=== PATIENT | male | born 1955 | race Caucasian/White ===

== ENCOUNTER 2019-01-13 10:18 | Outpatient (REF) | payer BC, SELFPAY ==
[2019-01-13 22:05] LABS: BUN 17 mg/dL (7-18); CREATININE 1.16 mg/dL (0.70-1.30); Calcium 9.4 mg/dL (8.5-10.1); Calculated LDL 149 mg/dL; Chloride 105 mmol/L (98-107); Cholesterol 216 mg/dL (<200); Glucose 73 mg/dL (74-106); HDL Cholesterol 43 mg/dL (40-60); Potassium 4.8 mmol/L (3.5-5.1); Sodium 143 mmol/L (136-145); Triglyceride 124 mg/dL (<150)
[2019-01-15 13:01] LABS: PSA, Screening 0.9 ng/mL (0.0-4.5)
== END 2019-01-13 10:38 ==
LOC: NCHCN 10:18
PROVIDERS: PCP Internal Medicine; Visit Provider Internal Medicine
DX: R03.0 Elevated blood-pressure reading, without diagnosis of hypertension (principal); E66.3 Overweight; Z12.5 Encounter for screening for malignant neoplasm of prostate
CPT/HCPCS: 80048; 80061; 84153

== ENCOUNTER 2020-07-05 08:59 | Outpatient (REF) | payer MEDICARE, BC, SELFPAY ==
[2020-07-05 14:09] LABS: ALT 36 U/L (16-63); AST 24 U/L (15-37); Albumin 4.1 g/dL (3.4-5.0); Alkaline Phosphatase 61 U/L (46-116); Anion Gap 12.7 mmol/L (3-11); BUN 26 mg/dL (7-18); Bilirubin, Total 0.7 mg/dL (0.2-1.0); CO2 26.3 mmol/L (21.0-32.0); CREATININE 1.2 mg/dL (0.70-1.30); Calculated LDL 150 mg/dL (<100); Chloride 103 mmol/L (98-107); Cholesterol 221 mg/dL (<200); Glucose 104 mg/dL (74-106); HDL Cholesterol 38 mg/dL (40-60); Potassium 3.7 mmol/L (3.5-5.1); Sodium 142 mmol/L (136-145); Total Protein 7.1 g/dL (6.4-8.2); Triglyceride 165 mg/dL (<150)
== END 2020-07-05 09:00 | disposition home or self-care (01) ==
LOC: NCHCN 08:59
PROVIDERS: PCP Internal Medicine; Visit Provider Internal Medicine
DX: E78.5 Hyperlipidemia, unspecified (principal); R03.0 Elevated blood-pressure reading, without diagnosis of hypertension
CPT/HCPCS: 80053; 80061

== ENCOUNTER 2020-08-20 16:32 | Outpatient (REF) | payer MEDICARE, BC, SELFPAY ==
[2020-08-20 19:42] LABS: Calculated LDL 103 mg/dL (<100); Cholesterol 185 mg/dL (<200); HDL Cholesterol 36 mg/dL (40-60); Triglyceride 233 mg/dL (<150)
== END 2020-08-20 16:33 | disposition home or self-care (01) ==
LOC: NCHCN 16:32
PROVIDERS: PCP Internal Medicine; Visit Provider Internal Medicine
DX: Z00.00 Encounter for general adult medical examination without abnormal findings (principal); E78.5 Hyperlipidemia, unspecified
CPT/HCPCS: 80061

== ENCOUNTER 2021-08-22 15:26 | Outpatient (REF) | payer MEDICARE, BC, SELFPAY ==
[2021-08-22 15:23] LABS: Anion Gap 11.3 mmol/L (3-11); BUN 26 mg/dL (7-18); CO2 26.7 mmol/L (21.0-32.0); CREATININE 1.2 mg/dL (0.70-1.30); Calcium 9.1 mg/dL (8.5-10.1); Calculated LDL 96 mg/dL (<100); Chloride 106 mmol/L (98-107); Cholesterol 156 mg/dL (<200); Glucose 118 mg/dL (74-106); HDL Cholesterol 40 mg/dL (40-60); Potassium 4.7 mmol/L (3.5-5.1); Sodium 144 mmol/L (136-145); Triglyceride 101 mg/dL (<150)
== END 2021-08-22 15:27 | disposition home or self-care (01) ==
LOC: NCHCN 15:26
PROVIDERS: PCP Internal Medicine; Visit Provider Internal Medicine
DX: I10 Essential (primary) hypertension (principal)
CPT/HCPCS: 80048; 80061

== ENCOUNTER 2021-09-07 17:05 | Outpatient (REF) | payer MEDICARE, BC, SELFPAY ==
[2021-09-08 21:22] LABS: PSA, Screening 1.2 ng/mL (<=4.5)
== END 2021-09-07 17:06 | disposition home or self-care (01) ==
LOC: NCHCN 17:05
PROVIDERS: PCP Internal Medicine; Visit Provider Nurse Practitioner Family
DX: Z12.5 Encounter for screening for malignant neoplasm of prostate (principal)
CPT/HCPCS: 84153

== ENCOUNTER 2021-10-26 20:31 | Outpatient (REF) | payer MEDICARE, BC, SELFPAY ==
[2021-10-26 21:23] LABS: ALT 32 U/L (16-63); AST 25 U/L (15-37); Albumin 4.4 g/dL (3.4-5.0); Alkaline Phosphatase 71 U/L (46-116); Bilirubin, Direct 0.1 mg/dL (0.0-0.2); Bilirubin, Total 0.7 mg/dL (0.2-1.0); TSH 1.94 uIU/mL (0.36-3.74); Total Protein 7.9 g/dL (6.4-8.2)
[2021-10-31 13:00] LABS: IgA 116 mg/dL (85-499); Interpretation (See Note); Tissue Transglutaminase IgA <1.2 U/mL (<4.0)
== END 2021-10-26 20:32 | disposition home or self-care (01) ==
LOC: NCHCN 20:31
PROVIDERS: PCP Internal Medicine; Visit Provider Internal Medicine
DX: R19.7 Diarrhea, unspecified (principal)
CPT/HCPCS: 80076; 82784; 83516; 84443

== ENCOUNTER 2022-03-10 11:18 | Outpatient (REF) | payer MEDICARE, BC, SELFPAY ==
[2022-03-10 15:11] LABS: HCT 49.6 % (40.0-50.0); HGB 16.6 g/dL (13.5-17.5); MCH 30.2 pg (27.0-33.0); MCHC 33.5 % (32.0-36.0); MCV 90 fL (80-95); Platelet Count 219 10^3/uL (130-400); RBC 5.49 10^6/uL (4.36-5.78); RDW 12.4 % (11.8-14.1); RDW-SD 40.7 fL; WBC 7.32 10^3/uL (4.4-10.8)
[2022-03-10 15:14] LABS: ESR 9 mm/hr (0-20)
[2022-03-10 15:18] LABS: C-Reactive Protein 0.07 mg/dL (0.0-0.3)
== END 2022-03-10 11:19 | disposition home or self-care (01) ==
LOC: NCHCN 11:18
PROVIDERS: PCP Internal Medicine; Visit Provider Internal Medicine
DX: H53.8 Other visual disturbances (principal); G44.89 Other headache syndrome
CPT/HCPCS: 85027; 85652; 86140

== ENCOUNTER 2022-07-03 13:51 | Outpatient (REF) | payer MEDICARE, BC, SELFPAY ==
[2022-07-03 16:46] LABS: Calculated LDL 82 mg/dL (<100); Cholesterol 154 mg/dL (<200); HDL Cholesterol 41 mg/dL (40-60); Triglyceride 156 mg/dL (<150)
== END 2022-07-03 13:52 | disposition home or self-care (01) ==
LOC: NCHCN 13:51
PROVIDERS: PCP Internal Medicine; Visit Provider Internal Medicine
DX: E78.5 Hyperlipidemia, unspecified (principal)
CPT/HCPCS: 80061

== ENCOUNTER 2023-03-15 10:21 | Outpatient (REF) | payer MEDICARE, BC, SELFPAY ==
[2023-03-15 15:19] LABS: Anion Gap 8.2 mmol/L (3-11); BUN 25 mg/dL (7-18); CO2 26.8 mmol/L (21.0-32.0); CREATININE 1.3 mg/dL (0.70-1.30); Calcium 9.2 mg/dL (8.5-10.1); Calculated LDL 89 mg/dL (<100); Chloride 106 mmol/L (98-107); Cholesterol 158 mg/dL (<200); Estimated GFR 59.84 (mL/min/1.73m2); Glucose 109 mg/dL (74-106); HDL Cholesterol 40 mg/dL (40-60); Potassium 4.3 mmol/L (3.5-5.1); Sodium 141 mmol/L (136-145); Triglyceride 148 mg/dL (<150)
[2023-03-15 15:24] LABS: Hemoglobin A1C 5.7 % (<5.7)
== END 2023-03-15 10:22 | disposition home or self-care (01) ==
LOC: NCHCN 10:21
PROVIDERS: PCP Internal Medicine; Visit Provider Internal Medicine
DX: R73.01 Impaired fasting glucose (principal); E78.5 Hyperlipidemia, unspecified
CPT/HCPCS: 80048; 80061; 83036

== ENCOUNTER → 2023-04-09 14:16 | Outpatient (BNVA) | payer MEDICARE, BC, SELFPAY | PROVIDERS: PCP Internal Medicine; Referring Provider Registered Nurse Maternal Newborn; Visit Provider Surgery | DX: K21.9 Gastro-esophageal reflux disease without esophagitis (principal); K22.70 Barrett's esophagus without dysplasia; K57.90 Diverticulosis of intestine, part unspecified, without perforation or abscess without bleeding; E66.3 Overweight | CPT/HCPCS: 99203 ==

== ENCOUNTER 2023-06-07 15:19 | Outpatient (REF) | payer MEDICARE, BC, SELFPAY ==
[2023-06-07 14:56] LABS: Bacteria Negative HPF (Negative); C & S Indicated? No; Casts Negative LPF (Negative); Epithelial Cells Rare HPF (Negative); Mucus Negative (Negative); WBC 0-2 HPF (0-5)
[2023-06-07 21:22] LABS: COMMENT (LAB VIEW ONLY) 155.07 mg/dL; Prot/Crea Ur Ratio 0.11
== END 2023-06-07 15:20 | disposition home or self-care (01) ==
LOC: NCHCN 15:19
PROVIDERS: PCP Internal Medicine; Visit Provider Nurse Practitioner Family
DX: R31.29 Other microscopic hematuria (principal)
CPT/HCPCS: 81015; 82565; 84156

== ENCOUNTER 2023-07-20 06:02 | Day surgery (SDC) | payer MEDICARE, BC, SELFPAY ==
--- NOTE | 2023-07-19 22:18 | HPE_ITS ---
Date of service: 07/20/23 Time of Service: 07:26 Assessment and Plan Assessment and plan (1) Diplopia: Status: Acute (2) Cough: Status: Acute Qualifiers: Cough type: chronic Qualified Code(s): R05.3 - Chronic cough (3) Hypertension: (4) Essential hypertension: (5) Elevated cholesterol: (6) Hyperlipidemia: (7) Overweight: (8) GERD (gastroesophageal reflux disease): Qualifiers: Esophagitis presence: esophagitis presence not specified Qualified Code(s): K21.9 - Gastro-esophageal reflux disease without esophagitis (9) Barretts esophagus: Assessment and plan: Informed consent is obtained for the procedural (explained in simple layman's terms that the pt. and/or family could understand) explaining risks vs benefits and alternatives to the procedure and consequences if we do not do the procedure and need/rational for the procedure. Risks include but are not limited to: bleeding, infection, perforation of esophagus, stomach, colon, small intestines, bronchus or trachea, or PTX. This would necessitate emergency surgery to repair the damage w/ possible ostomy; and other associated complications w/ the required surgery. Also complications of anesthesia including aspiration, AK/CVA/. (10) Diverticulosis: (11) History of colon polyps: (12) Nocturia: (13) Idiopathic osteoarthritis: (14) Obstructive sleep apnea: History of Present Illness Narrative: Patient is here today for EGD [facility].??? They not having any chest pain or shortness of breath, currently.? They are not experiencing any fever or chills.? They deny any productive cough or upper respiratory tract infection signs or symptoms.? They are not having abdominal pain, or nausea and vomiting.? They have not had any changes in medications, past medical history or past surgical history since previously being seen in the office. They have not had any accidents or have been in the ER since the clinic pre-operative evaluation. ??I reviewed the procedure with the patient today, including risks and benefits of the procedure, and what they could expect at home for recovery.? All questions are answered to the patient?s satisfaction today, and they are stable to proceed with the proposed procedure. Protonix 20mg po daily. -he gets breakthrough s/s aabout once a month. Pt states he has had multiple colonoscopy at [facility], this nurse explains that ENT had attempted to get results and they state no results. Then pt states he had one in September at [facility]. Pt reports history of having to move my bowels a lot. Pt reports he has cut his stomach meds in half and Im feeling much better. Pt states he is due for a EGD. Pt saw ENT- b/c he was having excessive phlegm. He changed BP meds and feels the phlegm has gotten better. He was on protonix. He has been for Aprrox 15 yrs. He has decreased from 40 to 20mg Protonix and still feels good. This was decreased PPI in summer. He feels like his throat is more sensitive. -check w/ insurance. -colo in [place] summer. The patient has had an EGD previously. ? There is no family history of any esophageal/gastric cancer.? Patient has not had any weight loss.? Their appetite is good.? The patient has been eating: Hx of Oliveira's. 2021 Repat colo at [place] summer. Was having severe diarrhea 5-6x a day. Cut back on PPI and and diarrhea stopped. occ has noticed hoarse voice if he talks lots. Stomach medications: protonix 20mg. Swallowing: no Reflux/Wet Burps: Nausea/vomiting:no Epigastric pain: no Chest pain/burning: no Melena/blood in stools/anemia: No Constipation or diarrhea: No Dental issues: No Nocturnal problems: only if he doesn't take his meds. If he eats spicy foods, than he will need to take a second protonx. Prior head/neck/esophageal surgery or radiation. Coffee: no Soda/Tea: herbal tea ASA/NSAID?s: no Tobacco: smoker THC: ETOH: no They deny any problems with anesthesia in the past. Anesthesia: general (without airway) Previous surgical intolerances: No Previous surgical complications: No Pulmonary risk factors: Planned procedure: Yes Sleep apnea risks: No COPD/Asthma/Smoker: LEA. 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 Diverticulosis Family history of prostate cancer History of colon polyps Nocturia Diarrhea Transient alteration of awareness Per pt. states he didn't take his blood pressure medication, and was out hunting and didn't know where he was or who he was, but states it wasn't a stroke they determined it was Global transient amnesia. Had CAT scans all normal Traumatic arthropathy Idiopathic osteoarthritis Barretts esophagus GERD (gastroesophageal reflux disease) Essential hypertension Abducens nerve palsy Headache disorder Obstructive sleep apnea Overweight Hyperlipidemia Hypertension Heart burn Elevated cholesterol Surgical History History of tonsillectomy History of knee replacement History of total ankle replacement Family History Mother Hypertension Breast cancer Father Hyperlipidemia Pancreatic cancer Social History Smoking/Tobacco Use Status: Never Smoking risk assessment performed?: Yes Alcohol Intake: former Drug use: Never Substance use type: does not use Housing: house Do you feel safe at home: Yes Do you feel safe in your relationship?: Yes Meds Allergies and Home Medications Allergies Allergy/AdvReac Type Severity Reaction Status Date / Time No Known Allergies Allergy Verified 07/20/23 06:33 Home Medications Medication Instructions Recorded Confirmed Type atorvastatin 20 mg tablet 20 mg PO DAILY 03/08/23 07/20/23 History diclofenac sodium 1 % topical gel 2 g topical BID PRN 03/08/23 07/20/23 History pantoprazole 20 mg tablet,delayed 20 mg PO DAILY 03/08/23 07/20/23 History release losartan 50 mg tablet mg 07/20/23 History Exam Narrative Exam Narrative: PHYSICAL EXAM GENERAL APPEARANCE: Alert, healthy appearance, oriented, x 3,? in no acute distress HYDRATION: Well hydrated HEAD, EYES, EARS, NECK, THROAT: Head is normocephalic, pupils equal, round, reactive to light and accommodation, ocular movement intact, sclera clear and no jaundice. ?Dentition intact. LUNGS: normal respiration/normal chest excursion. ?Clear to auscultation bilaterally. ?No wheeze. ?HEART: Regular rate and rhythm. no murmurs ABDOMEN: soft and non-tender to palpation.? Normal bowel sounds.? No hernias.? Time Spent Time spent with Patient: 40-54 minutes Time was spent: preparing to see the patient(eg.review tests), obtaining and/or reviewing separately otained hiistory, ordering medications,tests, procedures, referring, communicating with other health care specialist, indepentently interpreting results, counseling the patient and care coordination
--- NOTE | 2023-07-19 22:21 | PDOC.DSDIS_ITS ---
Date of service: 07/20/23 Time of Service: 08:07 Discharge Plan Disposition Patient Disposition: Home Condition: Good Discharge Details Reason For Visit: stomach scope Attending Provider: Olga Blankenship Primary Care Provider: Sandra Crowe Home Meds and New Rx's Prescriptions: New pantoprazole [Protonix] 40 mg tablet,delayed release (DR/EC) 40 mg PO DAILY Qty: 90 6RF Discontinued pantoprazole 20 mg tablet,delayed release (DR/EC) 20 mg PO DAILY No Action atorvastatin 20 mg tablet 20 mg PO DAILY diclofenac sodium 1 % gel 2 g topical BID PRN Rx Instructions: apply to single elbow, wrist or hand; for hand includes palm/fingers/back of hand losartan 50 mg tablet Patient Comments: TAKE 1 TABLET BY MOUTH EVERY DAY Discharge Instructions Additional Instructions: Post EGD Instruction ?You had anesthesia for your EGD/stomach scope today.? For your safety, please do the following for the next twenty-four (24) hours: Do Not operate a motor vehicle (car, truck, motorcycle, etc.) Do Not drink alcoholic beverages or use any recreational drugs for the first 24 hours or while taking pain medications. The medications in your body may have a reaction that can be dangerous. Do Not make any important decisions or sign any important papers You have just had a gastroscopy (EGD) or upper GI tract examination. It is important for your smooth recovery that you carefully follow the recommendations below. Do not hesitate to call if any questions should arise about your anesthesia, condition, or care. -Symptoms you may experience during the next 24 hours: ?1. Mild abdominal pain or excessive gas or a bloated feeling which improves with rest, liquids, eating? slightly, and walking as tolerated. 2. Drowsiness and/or forgetfulness because of the medications you were given. ?3. Throat numbness for about 1 hour. 4. A sore throat which you can treat with throat lozenges or by gargling with salt water 4-5 times a day. 5. Redness at the site of your IV which you can treat with warm compresses. SPECIAL INSTRUCTIONS: 1. You may resume your previous diet in one hour. We recommend a light meal to start, then progress as tolerated. 2. Restart regular medications in one hour. 3. No aspirin or non-steroidal containing medication for three days. 4. No lifting over 20 pounds or strenuous activity for the first 24 hours after your procedure. After 24 hours there are no restrictions on your activity, but you may feel fatigued for a few days. Findings:hiatal hernia gastritis Oliveira's -Medications:increase protonix to 40mg daily -Continue to follow lifestyle modifications: No alcohol, tobacco products, Aspirin or NSAID's (ibuprofen, Motrin, Naprosyn, aleve, etc).? Try to limit/avoid:? soda pop/any carbonated beverages, caffeine (including tea & chocolate), and acidic foods, (tomatoes, citrus, onions, peppermints) spicy or fried/fatty foods. Do not lie down for 30 minutes after eating, and do not eat 2 hours prior to bedtime. Avoid wearing tight fitting clothing/ belts. Follow up: -My office will send a letter with the results of your biopsy?s in 3-4wks time. Call the office at [phone] (Office) or [phone] (Hospital), or go to the ER right away if you notice any of the followin. Vomiting blood and /or ?coffee ground? material. ?2. Worsening of abdominal pain or cramping. ?3. Trouble with breathing, cough, and/or fever (temperature above 101.5 F). 4. Increasing pain with swallowing. ?5. Chest pain. 6. Any new symptoms. 7. Worsening of the redness at the IV site Stand Alone Forms: Anesthesia Discharge InstIsa Flores (DSU) Activity:: see above Diet:: see above Discharge Orders Discharge Orders: Discharge Order (Routine); Ordered 07/20/23 Ordered By: Olga Blankenship DS: Diagnosis Discharge Diagnosis (1) Diplopia: Status: Acute (2) Cough: Status: Acute (3) Hypertension: (4) Essential hypertension: (5) Elevated cholesterol: (6) Hyperlipidemia: (7) Overweight: (8) GERD (gastroesophageal reflux disease): (9) Barretts esophagus: Asessment and Plan: Patient is seen and examined after they are endoscopy.? Patient has minimal sore throat.? They have been able to tolerate liquids.? They do not have any nausea vomiting.? They are not having any chest pain or shortness of breath.? They have been able to pass gas and are not having any abdominal pain or distention.? They have not vomited any blood.? The vital signs have been stable-see nursing notes. We discussed findings on their endoscopy. We reviewed the importance of lifestyle modification-see discharge instructions We reviewed any new medications that the patient may be prescribed-see discharge instructions Patient will either be sent a letter with the biopsy results or follow-up in the office-see discharge instructions. Patient was given explicit instructions to follow-up regarding post endoscopy- refer to discharge Patient verbalized understanding and discharged in stable and satisfactory condition.? See nursing notes. (10) Diverticulosis: (11) History of colon polyps: (12) Nocturia: (13) Idiopathic osteoarthritis: (14) Obstructive sleep apnea: (15) Hiatal hernia with GERD: Status: Acute (16) Gastritis: Status: Acute
--- NOTE | 2023-07-19 22:23 | W.PM.ENDDOP ---
Date of service: 07/20/23 Time of Service: 08:03 Endoscopy Report DATE OF PROCEDURE: 07/20/23 PRE-OP DIAGNOSIS: Oliveira's /GERD POST-OP DIAGNOSIS: same (Hiatal hernia/gastritis/Oliveira's esophagus) SURGEON: Olga Blankenship ANESTHESIA TYPE: General:No Airway ESTIMATED BLOOD LOSS: 1 PATHOLOGY: other COMPLICATIONS: None DISPOSITION: same day PREP: Miralax/Dulcolax PROCEDURE DESCRIPTION: After informed consent was obtained the patient was take to the procedure room and placed in a supine position. Monitors were applied and a time out was done. The patients name, date of , procedure type, allergies to medications and metal in their body was reviewed. A bite block was placed and the patient was sedated. Once sedated and comfortable the gastroscope was advanced through the oropharynx which was grossly normal into the esophagus. The proximal and mid-esophagus were normal. There were no esophageal erosions, varices, diverticula or stricture apparent. He has a small sliding 2 cm hiatal hernia. The GE junction was at 40 cm. He has mild changes consistent with Oliveira's. He has 1 small tongue of Oliveira's at the 3 o'clock position that is 1 cm. Multiple biopsies are taken. All specimen is retrieved and no bleeding is noted. The scope was advanced into the stomach and through the pylorus into the 3rd portion of the duodenum. The duodenum was noted to be normal. Biopsies were done, all specimens are retrieved and no bleeding bleeding is noted. The scope was retracted back into the stomach. He has mild gastritis radiating from the antrum in a striped fashion. There is no signs of active bleeding or ulceration. The scope was retroflexed. The cardia and fundus were noted to be normal. The scope was retracted back into the esophagus and biopsies were done of the GE junction to rule out Oliveira's. The Z line was irregular regular. The GE junction was at 40 cm. The scope was removed and the patient was woken up and taken back to [facility] in stable condition.
[2023-07-20 06:20] VITALS: BP 151/100; PULSE 63; RESP 18; TEMP 36.5; O2SAT 98
[2023-07-20] MEDS: Lactated Ringers 1,000 ML 80 ML IV (06:46)
--- NOTE | 2023-07-20 07:23 | W.ANESPRE ---
General Info Date of Service Date Performed: 07/20/23 Height: 5 ft 10 in Weight: 95.5 kg Body Mass Index (BMI): 30.2 Surgical Procedure: Operation Date: 07/20/23 07:35 Proposed Procedure Side Surgeon p Gastroscopy Olga Blankenship, DO Meds Allergies and Home Medications Allergies Allergy/AdvReac Type Severity Reaction Status Date / Time No Known Allergies Allergy Verified 07/20/23 06:33 Home Medication Medication Instructions Recorded atorvastatin 20 mg tablet 20 mg PO DAILY 03/08/23 diclofenac sodium 1 % topical gel 2 g topical BID PRN 03/08/23 pantoprazole 20 mg tablet,delayed 20 mg PO DAILY 03/08/23 release losartan 50 mg tablet mg 07/20/23 Current Visit Medications: Current Medications Generic Name Dose Route Start Last Admin Trade Name Freq PRN Reason Stop Dose Admin Hyoscyamine Sulfate 0.125 mg 07/20/23 04:16 Hyoscyamine 0.125 Mg Sl/Oral/Chew SL 08/19/23 04:15 DIRECTED PRN Ringer's Solution 1,000 mls @ 80 mls/hr 07/20/23 06:00 07/20/23 06:46 IV 07/20/23 23:59 80 mls/hr INFUSION ANTON Administration IV Miscellaneous Supplies 1 each 07/20/23 06:00 Iv Access IV 07/20/23 23:59 DIRECTED ANTON Ondansetron HCl 4 mg 07/20/23 04:16 Ondansetron 4 Mg/2 Ml Vial IVP 08/19/23 04:15 Q4H PRN PRN Nausea / Vomiting Sodium Chloride 0 ml 07/20/23 06:00 Normal Saline Flush 10 Ml Syr IV 07/20/23 23:59 PRN PRN Sodium Chloride 0 ml 07/20/23 06:00 Normal Saline 10 Ml Vial IJ 07/20/23 23:59 DIRECTED PRN Sterile Water 0 ml 07/20/23 06:00 Water,Injection,Sterile 10 Ml Vial IJ 07/20/23 23:59 DIRECTED PRN PFSH Active Problems Active Problems: Problem Status Onset Code Cough R05.9 Diplopia H53.2 Medical History Medical History Global amnesia Transient Global Amnesia-did the follow up for a year, and then was on a aspirin for a while and then no longer had to be on it and has not had any issues since. Diverticulosis Family history of prostate cancer History of colon polyps Nocturia Diarrhea Transient alteration of awareness Per pt. states he didn't take his blood pressure medication, and was out hunting and didn't know where he was or who he was, but states it wasn't a stroke they determined it was Global transient amnesia. Had CAT scans all normal Traumatic arthropathy Idiopathic osteoarthritis Barretts esophagus GERD (gastroesophageal reflux disease) Essential hypertension Abducens nerve palsy Headache disorder Obstructive sleep apnea Overweight Hyperlipidemia Hypertension Heart burn Elevated cholesterol Surgical History Surgical History History of tonsillectomy History of knee replacement History of total ankle replacement Tobacco Smoking/Tobacco Use Status: Never Alcohol Alcohol Intake: former Substance Use Substance use: Never Substance use type: does not use Vital Signs and Lab Results Vital Signs Most Recent Vital Signs in EMR: Most Recent Vital Signs Temp Pulse Resp BP Pulse Ox 36.5 C 63 18 151/100 H 98 07/20/23 06:20 07/20/23 06:20 07/20/23 06:20 07/20/23 06:20 07/20/23 06:20 Lab Results Blood Type / Crossmatch: No Data to Display Complete Blood Count: No Data to Display Complete Metabolic Panel: No Data to Display Liver Function Panel: No Data to Display Coagulation Panel: No Data to Display Cardiac Panel: No Data to Display Arterial Blood Gas: No Data to Display Venous Blood Gas: No Data to Display Pancreas Panel: No Data to Display Thyroid Panel: No Data to Display Infectious Disease: No Data to Display Blood Cultures: No Data to Display Toxicology Panel: No Data to Display Anesthesia Assessment and Plan Anesthesia History Personal History: No History of Anesthesia Complications Family History: No Family History of Anesthesia Complications Exercise Tolerance Exercise Tolerance: Metabolic Equivalents>4 Pertinent Negatives Pertinent Negatives: No Major Cardiovascular Symptoms or Complaints and No Major Pulmonary Symptoms or Complaints Cardiac & Pulmonary Exam Cardiac Exam: Normal S1/S2 Heart Sounds Pulmonary Exam: Clear Bilateral Breath Sounds Implantable Cardiac Device Does patient have a Pacemaker or an ICD?: No Airway Exam Known Difficult Airway: No Mallampati Class: 3 Mouth Opening: Normal (> 3cm) Thyromental Distance: Greater than 3 cm Neck Range of Motion: Full ROM Neck Circumference: Thick Teeth Condition: Normal Dentition ASA Classification ASA Score: ASA 2 Emergency Case?: No NPO Status NPO Status: NPO Clears >2 hours, Solids >8 hours Anesthesia Plan Resuscitation Status: Full Code Anesthesia Technique: General Anesthesia Airway Planned: Natural Airway Monitors Used: Standard Monitors
[2023-07-20 07:30] VITALS: BMI 30.2
--- NOTE | 2023-07-20 07:50 | STOM_PTH ---
PATIENT: Kj Delatorre LOC: [facility] U#:[id number] AGE/SX: 67/M ROOM: RE07/20/[address]: Olga Blankenship : 1955 BED: DIS: 07/20/2023 SPEC #: [id number] RECD: 07/20/23 10:09 STATUS: JHON NEAL #: [id number] PAPA: 07/20/23 07:[address]: Olga Blankenship DEPT: Surgical Specimen RECD BY: Rosetta Callahan ENTERED: 07/20/23 10:12 SP TYPE: STOMACH OTHR DR: Sandra Crowe Tissues: 1 - BIOPSY BOWEL 2 - STOMACH BIOPSY 3 - STOMACH BIOPSY 4 - ESOPHAGUS BIOPSY 5 - ESOPHAGUS BIOPSY Procedures: GROSS AND MICRO LEVEL 4 Comments: [id number]
[2023-07-20 08:06] VITALS: BP 126/90; PULSE 68; RESP 16; TEMP 36.2; O2SAT 94
--- NOTE | 2023-07-20 08:16 | W.ANESPOSTOP ---
Postoperative Evaluation Date, Time and Location Date Performed: 07/20/23 Time Performed: 08:16 Patient Location: Day Surgery Unit Vital Signs Most Recent Imported Vital Signs: Most Recent Vital Signs Temp Pulse Resp BP Pulse Ox 36.2 C L 68 16 126/90 94 07/20/23 08:06 07/20/23 08:06 07/20/23 08:06 07/20/23 08:06 07/20/23 08:06 Pain Score Most Recent Pain Score: Most Recent Pain Score Pain Level 0 07/20/23 08:06 Assessment Mental Status: Awake (Alert & Oriented to Patient Baseline) Airway and Respiratory Function: Patent airway with normal (patient baseline) respiratory exam Cardiovascular Function: Hemodynamically Stable Hydration Status: Adequately Hydrated Nausea & Vomiting: No Nausea or Vomiting Pain: Pt. Denies Any Pain Peripheral Nerve Block: Patient did not receive a nerve block
[2023-07-20 08:36] VITALS: BP 146/96; PULSE 59; RESP 16; TEMP 36.4; O2SAT 95
== END 2023-07-20 09:12 | disposition home or self-care (01) ==
LOC: SUR 06:03
PROVIDERS: PCP Internal Medicine; Visit Provider Surgery
PROC: 0DJ68ZZ Inspection of Stomach, Via Natural or Artificial Opening Endoscopic (ICD-10-PCS; CPT 43235; principal; 2023-07-20 07:30)
DX: K22.70 Barrett's esophagus without dysplasia (principal); K29.70 Gastritis, unspecified, without bleeding; K44.9 Diaphragmatic hernia without obstruction or gangrene; K21.9 Gastro-esophageal reflux disease without esophagitis; I10 Essential (primary) hypertension; E66.3 Overweight; G47.33 Obstructive sleep apnea (adult) (pediatric)
CPT/HCPCS: 43239; 88305; J2001; J2704

== ENCOUNTER 2023-08-09 15:26 | Outpatient (REF) | payer MEDICARE, BC, SELFPAY | END 2023-08-09 15:27 | disposition home or self-care (01) | LOC: NCHCN 15:26 | PROVIDERS: PCP Internal Medicine; Visit Provider Internal Medicine | DX: R30.0 Dysuria (principal) | CPT/HCPCS: 87086 ==

== ENCOUNTER 2023-09-04 09:57 | Outpatient (REF) | payer MEDICARE, BC, SELFPAY ==
[2023-09-04 15:04] LABS: Anion Gap 10.2 mmol/L (3-11); BUN 25 mg/dL (7-18); CO2 22.8 mmol/L (21.0-32.0); CREATININE 1.3 mg/dL (0.70-1.30); Calcium 8.9 mg/dL (8.5-10.1); Chloride 108 mmol/L (98-107); Estimated GFR 59.84 (mL/min/1.73m2); Glucose 101 mg/dL (74-106); Potassium 4.4 mmol/L (3.5-5.1); Sodium 141 mmol/L (136-145)
== END 2023-09-04 09:58 | disposition home or self-care (01) ==
LOC: NCHCN 09:57
PROVIDERS: PCP Internal Medicine; Visit Provider Nurse Practitioner Family
DX: R73.03 Prediabetes (principal); Z01.818 Encounter for other preprocedural examination
CPT/HCPCS: 80048; 85027; 83036

== ENCOUNTER 2023-09-07 12:37 | Outpatient (REF) | payer MEDICARE, BC, SELFPAY ==
[2023-09-07 15:23] LABS: HCT 46.9 % (40.0-50.0); MCH 30.6 pg (27.0-33.0); MCHC 34.1 % (32.0-36.0); MCV 90 fL (80-95); MPV 11.4 fL (8.0-11.0); Platelet Count 192 10^3/uL (130-400); RBC 5.23 10^6/uL (4.36-5.78); RDW 12.6 % (11.8-14.1); RDW-SD 41.2 fL; WBC 6.02 10^3/uL (4.4-10.8)
[2023-09-07 15:27] LABS: Anion Gap 9.2 mmol/L (3-11); BUN 21 mg/dL (7-18); CO2 24.8 mmol/L (21.0-32.0); CREATININE 1.3 mg/dL (0.70-1.30); Calcium 8.9 mg/dL (8.5-10.1); Chloride 108 mmol/L (98-107); Estimated GFR 59.84 (mL/min/1.73m2); Glucose 136 mg/dL (74-106); Sodium 142 mmol/L (136-145)
[2023-09-07 15:43] LABS: Hemoglobin A1C 5.5 % (<5.7)
== END 2023-09-07 12:38 | disposition home or self-care (01) ==
LOC: NCHCN 12:37
PROVIDERS: PCP Internal Medicine; Visit Provider Internal Medicine
DX: I10 Essential (primary) hypertension (principal); E78.5 Hyperlipidemia, unspecified; K21.9 Gastro-esophageal reflux disease without esophagitis; K22.70 Barrett's esophagus without dysplasia; Z01.818 Encounter for other preprocedural examination; Z01.812 Encounter for preprocedural laboratory examination; R73.09 Other abnormal glucose
CPT/HCPCS: 80048; 85027; 83036

== ENCOUNTER 2024-02-19 15:56 | Outpatient (REF) | payer MEDICARE, BC, SELFPAY ==
[2024-02-19 21:54] LABS: Abs Immature Grans 0.05 10^3/uL (0.0-0.06); Absolute Basophil Count 0.03 10^3/uL (0.0-0.2); Absolute Eosinophil Count 0.06 10^3/uL (0.0-0.7); Absolute Lymphocyte Count 1.02 10^3/uL (1.2-3.4); Absolute Neutrophil Count 9.61 10^3/uL (1.2-6.7); Basophils % 0.3 %; Eosinophils % 0.5 %; HCT 47.8 % (40.0-50.0); HGB 15.9 g/dL (13.5-17.5); Immature Grans % 0.4 %; Lymphocytes % 8.8 %; MCH 30.5 pg (27.0-33.0); MCHC 33.3 % (32.0-36.0); MCV 92 fL (80-95); MPV 11.1 fL (8.0-11.0); Monocytes % 6.8 %; Neutrophils % 83.2 %; Platelet Count 225 10^3/uL (130-400); RBC 5.22 10^6/uL (4.36-5.78); RDW 12.8 % (11.8-14.1); WBC 11.55 10^3/uL (4.4-10.8)
[2024-02-19 21:56] LABS: Bilirubin Negative (Negative); Blood Small (Negative); Clarity Cloudy (Clear); Glucose Negative (Negative); Ketones Negative (Negative); Leukocyte Esterase Small (Negative); Nitrite Negative (Negative); Urobilinogen 0.2 mg/dL (Up to 0.2); pH 5.5 (5-8)
[2024-02-19 21:57] LABS: Absolute Monocyte Count 0.79 10^3/uL (0.1-0.8)
[2024-02-19 22:04] LABS: ALT 23 U/L (16-63); AST 15 U/L (15-37); Alkaline Phosphatase 72 U/L (46-116); Anion Gap 4.4 mmol/L (3-11); BUN 20 mg/dL (7-18); Bilirubin, Total 0.98 mg/dL (0.2-1.0); CO2 30.6 mmol/L (21.0-32.0); CREATININE 1.8 mg/dL (0.70-1.30); Chloride 107 mmol/L (98-107); Estimated GFR 40.24 (mL/min/1.73m2); Glucose 112 mg/dL (74-106); Lipase 37 U/L (<78); Potassium 3.9 mmol/L (3.5-5.1); Sodium 142 mmol/L (136-145); Total Protein 7.7 g/dL (6.4-8.2)
[2024-02-19 22:09] LABS: Bacteria Negative HPF (Negative); C & S Indicated? No; Calcium 8.9 mg/dL (8.5-10.1); Epithelial Cells Rare HPF (Negative); Mucus Trace (Negative); Other Cells Few Spermatozoa (Negative)
== END 2024-02-19 15:57 | disposition home or self-care (01) ==
LOC: NCHCN 15:56
PROVIDERS: PCP Internal Medicine; Visit Provider Family Medicine
DX: R10.9 Unspecified abdominal pain (principal)
CPT/HCPCS: 80053; 83690; 81003; 81015; 85025

== ENCOUNTER 2024-02-21 16:09 | Outpatient (REF) | payer MEDICARE, BC, SELFPAY | END 2024-02-21 16:10 | disposition home or self-care (01) | LOC: NCHCN 16:09 | PROVIDERS: PCP Internal Medicine; Visit Provider Internal Medicine | DX: R10.9 Unspecified abdominal pain (principal) | CPT/HCPCS: 87077; 87086; 87186 ==

== ENCOUNTER 2024-03-17 09:33 | Outpatient (REF) | payer MEDICARE, BC, SELFPAY ==
[2024-03-17 15:02] LABS: ALT 29 U/L (16-63); AST 22 U/L (15-37); Albumin 4.1 g/dL (3.4-5.0); Alkaline Phosphatase 64 U/L (46-116); Anion Gap 8.8 mmol/L (3-11); BUN 20 mg/dL (7-18); Bilirubin, Total 0.63 mg/dL (0.2-1.0); CO2 25.2 mmol/L (21.0-32.0); CREATININE 1.3 mg/dL (0.70-1.30); Calcium 9.4 mg/dL (8.5-10.1); Calculated LDL 155 mg/dL (<100); Chloride 108 mmol/L (98-107); Cholesterol 223 mg/dL (<200); Estimated GFR 59.47 (mL/min/1.73m2); Glucose 110 mg/dL (74-106); HDL Cholesterol 41 mg/dL (40-60); Potassium 4.2 mmol/L (3.5-5.1); Sodium 142 mmol/L (136-145); Total Protein 7.6 g/dL (6.4-8.2); Triglyceride 136 mg/dL (<150)
[2024-03-17 16:01] LABS: Hemoglobin A1C 5.6 % (<5.7)
[2024-03-17 22:39] LABS: PSA, Screening 1.4 ng/mL (<=4.5)
== END 2024-03-17 09:34 | disposition home or self-care (01) ==
LOC: NCHCN 09:33
PROVIDERS: PCP Internal Medicine; Visit Provider Internal Medicine
DX: E78.5 Hyperlipidemia, unspecified (principal); R73.03 Prediabetes
CPT/HCPCS: 80053; 80061; 84153; 83036

== ENCOUNTER 2024-03-24 17:34 | Outpatient (REF) | payer MEDICARE, BC, SELFPAY | END 2024-03-24 17:35 | disposition home or self-care (01) | LOC: NCHCN 17:34 | PROVIDERS: PCP Internal Medicine; Visit Provider Internal Medicine | DX: N39.0 Urinary tract infection, site not specified (principal) | CPT/HCPCS: 87077; 87086; 87186 ==

== ENCOUNTER 2024-04-15 11:58 | Outpatient (REF) | payer MEDICARE, BC, SELFPAY | END 2024-04-15 11:59 | disposition home or self-care (01) | LOC: NCHCN 11:58 | PROVIDERS: PCP Internal Medicine; Visit Provider Internal Medicine | DX: N39.0 Urinary tract infection, site not specified (principal); R82.89 Other abnormal findings on cytological and histological examination of urine | CPT/HCPCS: 87077; 87086; 87186 ==

== ENCOUNTER 2024-09-22 17:54 | Outpatient (REF) | payer MEDICARE, BC, SELFPAY ==
[2024-09-22 21:13] LABS: Glucose Negative (Negative)
[2024-09-22 21:21] LABS: C & S Indicated? No
== END 2024-09-22 17:55 | disposition home or self-care (01) ==
LOC: NCHCN 17:54
PROVIDERS: PCP Internal Medicine; Visit Provider Internal Medicine
DX: N39.0 Urinary tract infection, site not specified (principal)
CPT/HCPCS: 81003; 81015